=== PATIENT | female | born 1965 | race Caucasian/White ===

== ENCOUNTER → 2016-08-14 | Day surgery (SDC) | payer MEDICARE ==
[~2016-08-14] MED LIST: ACET325T9 PO; ATOR20TA58 PO; DULA1.5P SQ; FENTANYL PF 100 MCG/2 ML VIAL. IV PRN; FLUT50DI IH; FLUT9.9S NS; HYDROMORPHONE 2 MG/ML VIAL. IV PRN; INSU100I30 SQ; INSU100V13 SQ; IV RINGERS,LACTATED 1000ML 1,000 ML IV SCH; LIDOCAINE 1% 1 ML SYRINGE. ID PRN; LIDOCAINE 2% PF Vial for OR 5 ML VIAL. ONE; METF10002 PO; MORPHINE SULFATE 2 MG/ML DISP.SYRIN. IV PRN; ONDANSETRON PF 4 MG/2 ML VIAL. IV PRN; PANT40TA5 PO; PROCHLORPERAZINE 10 MG/2 ML VIAL. IV PRN; PROPOFOL 40 ML IV ONE; SUMA100T3 PO
[2016-08-14 10:26] VITALS: BP 96/71
== END ==
LOC: ENDOS 08:52
PROVIDERS: ATTEND Internal Medicine Gastroenterology
DX: K64.0 First degree hemorrhoids (principal); K52.9 Noninfective gastroenteritis and colitis, unspecified; Z80.0 Family history of malignant neoplasm of digestive organs; M19.90 Unspecified osteoarthritis, unspecified site; J45.909 Unspecified asthma, uncomplicated; F32.9 Major depressive disorder, single episode, unspecified; K21.9 Gastro-esophageal reflux disease without esophagitis; E78.00 Pure hypercholesterolemia, unspecified
CPT/HCPCS: 45378; 82947; J2704

== ENCOUNTER 2019-10-29 14:07 | Inpatient (IN) | payer MEDICARE ==
[~2019-10-29] VITALS: Ht 157.5 cm; Wt 67.5 kg
[2019-10-29] VITALS (7 sets, daily range): BP systolic 115–137; BP diastolic 68–74
[~2019-10-29 14:07] MED LIST changes: -FENTANYL PF 100 MCG/2 ML VIAL. IV PRN; -HYDROMORPHONE 2 MG/ML VIAL. IV PRN; -IV RINGERS,LACTATED 1000ML 1,000 ML IV SCH; -LIDOCAINE 1% 1 ML SYRINGE. ID PRN; -LIDOCAINE 2% PF Vial for OR 5 ML VIAL. ONE; -METF10002 PO; +METF10007 PO; -MORPHINE SULFATE 2 MG/ML DISP.SYRIN. IV PRN; -ONDANSETRON PF 4 MG/2 ML VIAL. IV PRN; -PANT40TA5 PO; +PANT40TA77 PO; -PROCHLORPERAZINE 10 MG/2 ML VIAL. IV PRN; -PROPOFOL 40 ML IV ONE
--- NOTE | 2019-10-29 14:20 | NUR ---
Pt admitted to rm 107, via gurney- ambulated to bed independently. Pt A&Ox4, 02 sat 97% on 5L nc, no visible signs of distress. Afebrile, all VSS. Admission completed. Dr Fox here to see pt- downgraded pt to med surg floor- will give report to 6SO/danitza + pt.
[2019-10-29] MEDS ORDERED: busPIRone 10 MG TABLET. PO PRN (14:45)
[2019-10-29] MEDS ORDERED: DEXTROSE 50% 25 GM / 50ML DISP.SYRIN. IV PRN (14:45)
[2019-10-29] MEDS ORDERED: fentaNYL PF VIAL 100 MCG/2 ML VIAL IVP PRN (14:45)
--- NOTE | 2019-10-29 15:05 | PDOC1 ---
History and Physical Date of Admission Date of Admission DATE: 10/29/19 TIME: 15:05 History of Present Illness History of Present Illness Ms Sanford is a 54yo F w/ PMHx DM2, COPD from childhood asthma, bilateral PE on xarelto who was admitted through the ED at [facility] on 10/25/2019 with a 1-week history of gradually increasing shortness of breath, fevers up to 103.5 degrees Fahrenheit, nausea, vomiting, some diarrhea. She is very weak. She has minimal exposure. Her does work outside the house. She is a lifelong nonsmoker. Her CT scan showed bilateral ground glass opacities and therefore a SARS-CoV-2 (COVID-19) swab was sent and returned positive. Over the course of 5 days her O2 needs gradually increased by 1L/min and she was placed in ICU at [place]. Start on experimental oral Plaquenil and Zithromax prior to the COVID-19 swab coming back positive, 10/29 will be her last day of treatment. She was called for transfer to [facility] due to increasing O2 needs to 5L NCO2 and concern for possible impending respiratory failure and need for ventilator access. She is seen in some respiratory distress in our ICU, but has O2 saturations of 96% on 5L NCO2 and glucose in 300s. Prior to discharge, she had a hemoglobin of 11.8 g/dL with a white count of 4100. Electrolytes were within normal range. Sodium 140 mEq/L, potassium 3.7 mEq per liter. Nonfasting blood sugar 295. {On 09/16/2019 she was found with bilateral PE at [facility] after a road trip to [place] and has has intermittent difficulty affording anticoagulation, was initially started on eliquis, now has transitioned to Xarelto for treatment.} Past Medical History Pulmonary: Asthma, Bronchitis, COPD, Pulmonary embolus GI: No pertinent hx Heme/Onc: No pertinent hx Hepatobiliary: No pertinent hx Psych: No pertinent hx Rheumatologic: No pertinent hx Infectious disease: No pertinent hx ENT: No pertinent hx Renal/: No pertinent hx Endocrine: Diabetes Past Surgical History Past Surgical History: Tubal Ligation Family History Family History: Coronary Artery Disease Social History Smoke: No ALCOHOL: none Drugs: None Current Medications Current Medications Current Medications Acetaminophen (Tylenol) 1,000 mg PRN Q8HRS PRN PO MILD PAIN 1-3; Start 4/5/20 at 14:45 Insulin Glargine (Lantus Syringe) 30 unit QHS SQ ; Start 10/29/19 at 21:00 Insulin Human Lispro (HumaLOG) 0-5 UNITS TIDWMEALS SQ ; Start 10/29/19 at 17:00 Dextrose (Dextrose 50%-Water Syringe) 12.5 gm PRN Q15MIN PRN IV SEE COMMENTS; Start 10/29/19 at 14:45 Lactobacillus Rhamnosus (Culturelle) 1 cap BID PO ; Start 10/29/19 at 21:00 Rivaroxaban (Xarelto) 20 mg DAILYWBKFT PO ; Start 10/30/19 at 08:00 Hydroxychloroquine Sulfate (Plaquenil) 200 mg BID PO ; Start 10/29/19 at 21:00; Stop 10/30/19 at 09:01 Buspirone HCl (Buspar) 10 mg PRN DAILY PRN PO ANXIETY; Start 10/29/19 at 14:45 Fentanyl Citrate (Fentanyl 2ml Vial) 50 mcg PRN Q2HR PRN IVP MODERATE TO SEVERE PAIN; Start 10/29/19 at 14:45 Active Scripts Active Reported Tresiba Flextouch U-100 (Insulin Degludec) 100 Unit/1 Ml Insuln.pen 100 Unit SQ Trulicity (Dulaglutide) 1.5 Mg/0.5 Ml Pen.injctr 1.5 Mg SQ Imitrex (Sumatriptan Succinate) 100 Mg Tablet 1 Tab PO PRN Q12HRS PRN Pantoprazole Sodium 40 Mg Tablet. 1 Tab PO DAILY Metformin Hcl 1,000 Mg Tablet 1 Tab PO BID Hold for 48 hours post procedure. Restart Metformin 11/07/15 evening dose and continue as prescribed after that. Flonase Allergy Relief (Fluticasone Propionate) 9.9 Ml [place].susp 2 Sprays NS BID Flovent 50MCG Diskus (Fluticasone Propionate) 50 Mcg Disk.w.dev 50 Mcg IH BID Atorvastatin Calcium 20 Mg Tablet 20 Mg PO HS Tylenol (Acetaminophen) 325 Mg Tablet 650 Mg PO PRN Q6HRS PRN Allergies Allergies: Coded Allergies: Penicillins (Verified Allergy, Intermediate, 08/14/16) ROS General: YES: Chills, Fatigue, Malaise, Appetite; No: Night Sweats, Other PSYCHOLOGICAL ROS: YES: Anxiety; No: Behavioral Disorder, Concentration difficultie, Decreased libido, Depression, Disorientation, Hallucinations, Hostility, Irritablity, Memory difficulties, Mood Swings, Obsessive thoughts, Physical abuse, Sexual abuse, Sleep disturbances, Suicidal ideation, Other Eyes: No Blurry vision, No Decreased vision, No Double vision, No Dry eyes, No Excessive tearing, No Eye Pain, No Itchy Eyes, No Loss of vision, No Photophobia, No Scotomata, No Uses contacts, No Uses glasses, No Other HEENT: No: Heacaches, Visual Changes, Hearing change, Nasal congestion, Nasal discharge, Oral lesions, Sinus pain, Sore Throat, Epistaxis, Sneezing, Snoring, Tinnitus, Vertigo, Vocal changes, Other ALLERGY AND IMMUNOLOGY: No: Hives, Insect Bite Sensitivity, Itchy/Watery Eyes, Nasal Congestion, Post Nasal Drip, Seasonal Allergies, Other Hematological and Lymphatic: YES: Blood Clots; No: Bleeding Problems, Blood Transfusions, Brusing, Night Sweats, Pallor, Swollen Lymph Nodes, Other ENDOCRINE: No: Breast Changes, Galactorrhea, Hair Pattern Changes, Hot Flashes, Malaise/lethargy, Mood Swings, Palpitations, Polydipsia/polyuria, Skin Changes, Temperature Intolerance, Unexpected Weight Changes, Other Breast: No New/Changing Breast Lumps, No Nipple changes, No Nipple discharge, No Other Respiratory: YES: Cough, Pleuritic Pain, Shortness of breath, SOB with excertion, Tachypnea, Wheezing; No: Hemoptysis, Orthopnea, Sputum Changes, Stridor, Other Cardiovascular: No Chest Pain, No Palpitations, No Orthopnea, No Paroxysmal Noc. Dyspnea, No Edema, No Lt Headedness, No Other Gastrointestinal: Yes Nausea; No Vomiting, No Abdominal Pain, No Diarrhea, No Constipation, No Melena, No Hematochezia, No Other Genitourinary: No Dysuria, No Frequency, No Incontinence, No Hematuria, No Retention, No Discharge, No Urgency, No Pain, No Flank Pain, No Other, No , No , No , No , No , No , No Musculoskeletal: No Gait Disturbance, No Joint Pain, No Joint Stiffness, No Joint Swelling, No Muscle Pain, No Muscular Weakness, No Pain In:, No Swelling In:, No Other Neurological: No Behavorial Changes, No Bowel/Bladder ControlChng, No Confusion, No Dizziness, No Gait Disturbance, No Headaches, No Impaired Coord/balance, No Memory Loss, No Numbness/Tingling, No Seizures, No Speech Problems, No Tremors, No Visual Changes, No Weakness, No Other Skin: No Dry Skin, No Eczema, No Hair Changes, No Lumps, No Mole Changes, No Mottling, No Nail Changes, No Pruritus, No Rash, No Skin Lesion Changes, No Other, No Acne Physical Exam General: Alert, Oriented X3, Cooperative, moderate distress HEENT: Atraumatic, PERRLA, EOMI, Mucous membr. moist/pink Lungs: Other (Bilateral rhonchi) Heart: S1S2, RRR, no thrills, no rubs, no gallops, no murmurs Abdomen: Normal bowel sounds, Soft, No tenderness, No hepatosplenomegaly, No masses Rectal Exam: not examined Extremities: No clubbing, No cyanosis, No edema, Normal pulses, No tenderness/swelling Skin: No rashes, No breakdown, No significant lesion Neuro: Normal gait, Normal speech, Strength at 5/5 X4 ext, Normal tone, Sensation intact, Cranial nerves 3-12 NL, Reflexes 2+ Psych/Mental Status: Mental status NL, Mood NL VTE Prophylaxis Ordered VTE Prophylaxis Devices: Yes VTE Pharmacological Prophylaxi: Yes Assessment/Plan Assessment/Plan A/P: COVID-19 positive coronavirus pneumonia - to complete experimental plaquenil and azithromycin therapy on 10/30/2019. Will consult pulmonology for ongoing hypoxia. Acute hypoxic respiratory failure - with underlying chronic asthma/COPD and active SARS-CoV-2 infection will treat supportively. Nebulizer therapy along with a Solu-Medrol was added during her stay at [facility]. Due to limited research indicating spread of disease and poor outcomes d/c Recent diagnosis of pulmonary embolism - bilateral, will cont xarelto as prescribed Chronic obstructive pulmonary disease - as above, due to chronic asthma. Will add singulair as there are no contraindications. I have discontinued nebs and IV steroids, will consult Pulm for further recommendations Type 2 diabetes mellitus - poorly controlled. Will increase to basal bolus plus insulin regimen, stop steroids for now Pleuritic type chest pain - cont supporitive care with acetaminophen, codeine Dehydration, improved. FEN - ADA diet PPX - xarelto FULL CODE Dispo - ICU. will downgrade. transfer her from ICU to COVID unit on 6S. May need ICU in the future, however she is currently stable. CC time 35 minutes COVID-19 CRITERIA: The patient was evaluated during the global COVID-19 pandemic, and that diagnosis was suspected/considered upon their initial presentation. Their evaluation, treatment and testing was consistent with current guidelines for patients who present with complaints or symptoms that may be related to COVID-19. MARK FRAZIER MD Oct 29, 2019 15:05
[2019-10-29] MEDS: guaiFENesin/CODEINE 100mg/10mg 5 ML LIQUID PO PRN (16:20)
[2019-10-29] MEDS: ACETAMINOPHEN 500 MG TABLET PO PRN (16:20)
--- NOTE | 2019-10-29 16:45 | NUR ---
Patient arrived to room 660 via wheelchair, patient alert and oriented, 5l NC, vitals stable. Call light within reach. Will continue to monitor
[2019-10-29] MEDS: INSULIN LISPRO 300 UNITS/3 ML VIAL. SQ SCH ×2 (17:26→17:27)
--- NOTE | 2019-10-29 17:59 | NUR ---
Checked patients blood sugar which came back at 350, Dr. Fox notified. I then noticed patients armband was still [facility] armband, blood sugar was not populating into our charting system. Armband removed and replaced with [facility] armband.
[2019-10-29] MEDS: INSULIN GLARGINE SYRINGE. SQ SCH (21:00)
[2019-10-29] MEDS: MONTELUKAST SODIUM 10 MG TABLET. PO SCH (21:00)
[2019-10-29] MEDS: LACTOBACILLUS RHAMNOSUS GG 1 CAPSULE. PO SCH (21:00)
[2019-10-29] MEDS: HYDROXYCHLOROQUINE (PROGRAM) 200 MG TABLET PO SCH (21:00)
[2019-10-29] MEDS ORDERED: INSULIN LISPRO 300 UNITS/3 ML VIAL. SQ ONE (21:45)
--- NOTE | 2019-10-29 21:50 | CONS ---
DATE OF CONSULTATION: PULMONARY CONSULTATION ATTENDING PHYSICIAN: Dr. Herbie Fox. REASON FOR CONSULTATION: Hypoxia, COVID-19 pneumonia and recent pulmonary embolism. HISTORY OF PRESENT ILLNESS: The patient is a 54-year-old female who has no significant tobacco history. She has history of asthma. She was recently diagnosed in August with bilateral pulmonary embolism and DVT at [facility] after a road trip to [place] and has been on Xarelto. The patient presented to [facility] on 10/24 with 1-week history of gradually increasing shortness of breath. She had fevers up to 103 at home. She has had some nausea, vomiting and some diarrhea. The patient was very weak. She had a CAT scan done at [facility], which showed ground-glass opacities and was strongly favoring COVID-19 pneumonitis. The patient's oxygen requirement had increased and was placed up to 5 liters of oxygen. As a result, she was transferred to our facility with possibility for needing ICU care. The patient has been on Plaquenil and Zithromax for the last 4 days and tomorrow will be her last day of treatment. She does not appear to be in any obvious respiratory distress while on 4 liters nasal cannula, but does appear ill. PAST MEDICAL HISTORY: Significant for history of possible asthma, but no significant tobacco history. History of pulmonary embolism and deep venous thrombosis in 08/[address] her trip to [place] and has been on Xarelto. History of diabetes. PAST SURGICAL HISTORY: Tubal ligation. ALLERGIES: PENICILLIN. FAMILY HISTORY: Coronary artery disease. SOCIAL HISTORY: No significant tobacco history or alcohol history. MEDICATIONS: All reviewed as listed in the MRAD including Xarelto. The patient is on Plaquenil, Singulair and receiving BuSpar and p.r.n. Tylenol. REVIEW OF SYSTEMS: A 10-point system obtained. Pertinent positives are discussed in my history of present illness, otherwise noncontributory. All systems that were negative were reviewed as well. PHYSICAL EXAMINATION: VITAL SIGNS: Reviewed. Blood pressure 115/68, pulse oximetry 96% on 4 liters. Her T-max at our hospital was 99.4. GENERAL: She does not appear to be in any obvious respiratory distress while on 4 liters nasal cannula. EYES: Her visual exam was performed via telemedicine. NECK: With no JVD. ABDOMEN: Obese. EXTREMITIES: With no pitting edema. LABORATORY DATA: Have been ordered and are pending. Blood sugar 340. IMPRESSION: 1. Acute hypoxic respiratory failure secondary to COVID-[address] chest with ground-glass opacities favoring a viral pneumonitis/COVID-19 pneumonia. 3. Recent history of pulmonary embolism in 08/2019 along with DVT after a road trip to [place]. The patient has been on anticoagulation with Xarelto. Initially, she was on Eliquis. She would need at least 3 months of anticoagulation and a followup imaging study. 4. Underlying obesity. 5. Underlying asthma, clinically stable. RECOMMENDATIONS: 1. Discussed with the patient and the RN regarding the plan of treatment. 2. Continue with present oxygen at 4 liters, keep saturations 94 and above. 3. Finished a 5-day course of Plaquenil. 4. Monitor fever pattern and for any worsening hypoxia. 5. Continue Xarelto. 6. We will follow labs and make necessary adjustment. 7. She will require at least 3 months of anticoagulation. She will also require followup imaging study with venous Dopplers and a lung scan prior to discontinuation in about 3 months. 8. Discussed with RN and we will follow along with you. BRADY LEÓN MD DR: JIGNESH/bobby JOB#: [id number] / [id number]
[2019-10-30 04:00] VITALS: BP 106/69
[2019-10-30 04:31] LABS: BASO % 1 % (0-3); EOS % 0 % (0-3); HEMATOCRIT 33.8 % (36.0-47.0); HEMOGLOBIN 11.4 g/dL (12.0-15.5); LYMPH # 1.3 x10^3/uL (1.0-4.8); LYMPH % 21 % (24-48); MEAN CORPUSCULAR HEMOGLOBIN 31 pg (25-35); MEAN CORPUSCULAR HGB CONC 34 g/dL (31-37); MEAN CORPUSCULAR VOLUME 92 fL (79-100); MONO # 0.8 x10^3/uL (0.0-1.1); MONO % 13 % (0-9); NEUT # 4.1 x10^3/uL (1.8-7.7); NEUT % 66 % (31-73); PLATELET COUNT 392 x10^3/uL (140-400); RED BLOOD COUNT 3.69 x10^6/uL (3.50-5.40); RED CELL DISTRIBUTION WIDTH 13.4 % (11.5-14.5); WHITE BLOOD COUNT 6.2 x10^3/uL (4.0-11.0)
[2019-10-30 04:53] LABS: CALCIUM 8.8 mg/dL (8.5-10.1); CREATININE 0.6 mg/dL (0.6-1.0); GFR 103.8; POTASSIUM 3.7 mmol/L (3.5-5.1)
--- NOTE | 2019-10-30 07:07 | NUR ---
IP: According to H&P, pt was proved COVID + while at [facility]. Pt to be in airborne/contact precautions using a face shield.
[2019-10-30 08:00] VITALS: BP 100/63
[2019-10-30] MEDS: INSULIN LISPRO 300 UNITS/3 ML VIAL. SQ SCH ×6 (08:00→18:04)
--- NOTE | 2019-10-30 08:09 | RAD ---
Single view of the chest. 10/30/2019 5:00 AM Indication: COVID follow up Comparison: None available Findings: Lordotic projection noted. No pneumothorax or effusion is seen. Patchy interstitial and alveolar infiltrates are present bilaterally. Heart size is normal. Bony thorax is grossly intact. IMPRESSION: Diffuse interstitial and patchy alveolar infiltrates. Electronically signed by: Óscar Winn MD (10/30/2019 8:06 AM) [id number]
[2019-10-30] MEDS: HYDROXYCHLOROQUINE (PROGRAM) 200 MG TABLET PO SCH (09:24)
[2019-10-30] MEDS: RIVAROXABAN 10 MG TABLET. PO SCH (09:25)
[2019-10-30] MEDS: LACTOBACILLUS RHAMNOSUS GG 1 CAPSULE. PO SCH ×2 (09:25→21:09)
--- NOTE | 2019-10-30 10:37 | NUR ---
SW following. Chart reviewed, pt is from home with . Pt tested positive for COVID-19. Pt requiring 4-5L of oxygen at this time. SW will continue to follow.
--- NOTE | 2019-10-30 11:43 | PDOC ---
PULMONARY PROGRESS NOTES Subjective no increase soa Vitals Vital Signs Date Time Temp Pulse Resp B/P (MAP) Pulse Ox O2 Delivery O2 Flow Rate FiO2 10/30/19 08:00 97.6 52 100/63 (75) 95 Nasal Cannula 5.0 97.6 10/30/19 04:00 18 Comments visual exam done no soa, no rash no leg edema General: Alert, No acute distress Labs Laboratory Tests Test 10/29/19 16:32 10/29/19 21:15 10/30/19 04:00 10/30/19 08:19 Glucose (Fingerstick) 350 mg/dL (70-99) 340 mg/dL (70-99) 119 mg/dL (70-99) White Blood Count 6.2 x10^3/uL (4.0-11.0) Red Blood Count 3.69 x10^6/uL (3.50-5.40) Hemoglobin 11.4 g/dL (12.0-15.5) Hematocrit 33.8 % (36.0-47.0) Mean Corpuscular Volume 92 fL (79-100) Mean Corpuscular Hemoglobin 31 pg (25-35) Mean Corpuscular Hemoglobin Concent 34 g/dL (31-37) Red Cell Distribution Width 13.4 % (11.5-14.5) Platelet Count 392 x10^3/uL (140-400) Neutrophils (%) (Auto) 66 % (31-73) Lymphocytes (%) (Auto) 21 % (24-48) Monocytes (%) (Auto) 13 % (0-9) Eosinophils (%) (Auto) 0 % (0-3) Basophils (%) (Auto) 1 % (0-3) Neutrophils # (Auto) 4.1 x10^3/uL (1.8-7.7) Lymphocytes # (Auto) 1.3 x10^3/uL (1.0-4.8) Monocytes # (Auto) 0.8 x10^3/uL (0.0-1.1) Eosinophils # (Auto) 0.0 x10^3/uL (0.0-0.7) Basophils # (Auto) 0.0 x10^3/uL (0.0-0.2) Sodium Level 143 mmol/L (136-145) Potassium Level 3.7 mmol/L (3.5-5.1) Chloride Level 103 mmol/L (98-107) Carbon Dioxide Level 29 mmol/L (21-32) Anion Gap 11 (6-14) Blood Urea Nitrogen 16 mg/dL (7-20) Creatinine 0.6 mg/dL (0.6-1.0) Estimated GFR (Cockcroft-Gault) 103.8 Glucose Level 173 mg/dL (70-99) Calcium Level 8.8 mg/dL (8.5-10.1) Test 10/30/19 11:36 Glucose (Fingerstick) 213 mg/dL (70-99) Laboratory Tests Test 10/29/19 16:32 10/29/19 21:15 10/30/19 04:00 10/30/19 08:19 Glucose (Fingerstick) 350 mg/dL (70-99) 340 mg/dL (70-99) 119 mg/dL (70-99) White Blood Count 6.2 x10^3/uL (4.0-11.0) Red Blood Count 3.69 x10^6/uL (3.50-5.40) Hemoglobin 11.4 g/dL (12.0-15.5) Hematocrit 33.8 % (36.0-47.0) Mean Corpuscular Volume 92 fL (79-100) Mean Corpuscular Hemoglobin 31 pg (25-35) Mean Corpuscular Hemoglobin Concent 34 g/dL (31-37) Red Cell Distribution Width 13.4 % (11.5-14.5) Platelet Count 392 x10^3/uL (140-400) Neutrophils (%) (Auto) 66 % (31-73) Lymphocytes (%) (Auto) 21 % (24-48) Monocytes (%) (Auto) 13 % (0-9) Eosinophils (%) (Auto) 0 % (0-3) Basophils (%) (Auto) 1 % (0-3) Neutrophils # (Auto) 4.1 x10^3/uL (1.8-7.7) Lymphocytes # (Auto) 1.3 x10^3/uL (1.0-4.8) Monocytes # (Auto) 0.8 x10^3/uL (0.0-1.1) Eosinophils # (Auto) 0.0 x10^3/uL (0.0-0.7) Basophils # (Auto) 0.0 x10^3/uL (0.0-0.2) Sodium Level 143 mmol/L (136-145) Potassium Level 3.7 mmol/L (3.5-5.1) Chloride Level 103 mmol/L (98-107) Carbon Dioxide Level 29 mmol/L (21-32) Anion Gap 11 (6-14) Blood Urea Nitrogen 16 mg/dL (7-20) Creatinine 0.6 mg/dL (0.6-1.0) Estimated GFR (Cockcroft-Gault) 103.8 Glucose Level 173 mg/dL (70-99) Calcium Level 8.8 mg/dL (8.5-10.1) Test 10/30/19 11:36 Glucose (Fingerstick) 213 mg/dL (70-99) Medications Active Scripts Medications Dose Route/Sig Max Daily Dose Days Date Category Dose Instructions Tresiba Flextouch U-100 (Insulin Degludec) 100 Unit/1 Ml Insuln.pen 100 Unit SQ 08/12/16 Reported Trulicity (Dulaglutide) 1.5 Mg/0.5 Ml Pen.injctr 1.5 Mg SQ 08/12/16 Reported Imitrex (Sumatriptan Succinate) 100 Mg Tablet 1 Tab PO PRN Q12HRS PRN 11/05/15 Reported Pantoprazole Sodium 40 Mg Tablet.dr 1 Tab PO DAILY 11/05/15 Reported Metformin Hcl 1,000 Mg Tablet 1 Tab PO BID 11/05/15 Reported Hold for 48 hours post procedure. Restart Metformin 11/07/15 evening dose and continue as prescribed after that. Flonase Allergy Relief (Fluticasone Propionate) 9.9 Ml [place].susp 2 Sprays NS BID 11/05/15 Reported Flovent 50MCG Diskus (Fluticasone Propionate) 50 Mcg Disk.w.dev 50 Mcg IH BID 11/05/15 Reported Atorvastatin Calcium 20 Mg Tablet 20 Mg PO HS 11/05/15 Reported Tylenol (Acetaminophen) 325 Mg Tablet 650 Mg PO PRN Q6HRS PRN 11/05/15 Reported Impression . 1. Acute hypoxic respiratory failure secondary to COVID-[address] chest with ground-glass opacities favoring a viral pneumonitis/COVID-19 pneumonia. 3. Recent history of pulmonary embolism in 08/2019 along with DVT after a road trip to [place]. The patient has been on anticoagulation with Xarelto. Initially, she was on Eliquis. She would need at least 3 months of anticoagulation and a followup imaging study. 4. Underlying obesity. 5. Underlying asthma, clinically stable. Plan . 1. Discussed with the patient and the RN regarding the plan of treatment. 2. Continue with present oxygen at 4 liters, keep saturations 94 and above. 3. Finished a 5-day course of Plaquenil. 4. Monitor fever pattern and for any worsening hypoxia. 5. Continue Xarelto. 6. We will follow labs and make necessary adjustment. 7. She will require at least 3 months of anticoagulation. She will also require followup imaging study with venous Dopplers and a lung scan prior to discontinuation in about 3 months. 8. Discussed with RN and we will follow along with you. BRADY LEÓN MD Oct 30, 2019 11:43
[2019-10-30 12:00] VITALS: BP 103/59
--- NOTE | 2019-10-30 12:11 | PDOC ---
[employer] [facility] PROGRESS NOTE Chief Complaint Chief Complaint Acute hypoxic respiratory failure secondary to COVID-[address] chest with ground-glass opacities favoring a viral pneumonitis/COVID-19 pneumonia. Recent history of pulmonary embolism in 08/2019 along with DVT after a road trip to [place]. The patient has been on anticoagulation with Xarelto. Initially, she was on Eliquis. She would need at least 3 months of anticoagulation and a followup imaging study. Underlying obesity. Underlying asthma, clinically stable. History of Present Illness History of Present Illness [id number] Patient seen and examined Discussed with RN Chart reviewed She is very ill Vitals/I&O Vitals/I&O: Vital Signs Date Time Temp Pulse Resp B/P (MAP) Pulse Ox O2 Delivery O2 Flow Rate FiO2 10/30/19 08:00 97.6 52 100/63 (75) 95 Nasal Cannula 5.0 97.6 10/30/19 04:00 18 I & O0 10/29/19 10/29/19 10/30/19 15:00 23:00 07:00 Intake Total 120 ml Balance 120 ml Physical Exam General: Alert, Oriented X3, Cooperative, moderate distress Heart: Regular rate, Normal S1 Lungs: Crackles, Other (wheezing) Abdomen: Normal bowel sounds, Soft, No tenderness, No hepatosplenomegaly, No masses Extremities: No clubbing, No cyanosis, No edema, Normal pulses, No tenderness/swelling Skin: No rashes, No breakdown, No significant lesion Labs Labs: Laboratory Tests Test 10/29/19 16:32 10/29/19 21:15 10/30/19 04:00 10/30/19 08:19 Glucose (Fingerstick) 350 mg/dL (70-99) 340 mg/dL (70-99) 119 mg/dL (70-99) White Blood Count 6.2 x10^3/uL (4.0-11.0) Red Blood Count 3.69 x10^6/uL (3.50-5.40) Hemoglobin 11.4 g/dL (12.0-15.5) Hematocrit 33.8 % (36.0-47.0) Mean Corpuscular Volume 92 fL (79-100) Mean Corpuscular Hemoglobin 31 pg (25-35) Mean Corpuscular Hemoglobin Concent 34 g/dL (31-37) Red Cell Distribution Width 13.4 % (11.5-14.5) Platelet Count 392 x10^3/uL (140-400) Neutrophils (%) (Auto) 66 % (31-73) Lymphocytes (%) (Auto) 21 % (24-48) Monocytes (%) (Auto) 13 % (0-9) Eosinophils (%) (Auto) 0 % (0-3) Basophils (%) (Auto) 1 % (0-3) Neutrophils # (Auto) 4.1 x10^3/uL (1.8-7.7) Lymphocytes # (Auto) 1.3 x10^3/uL (1.0-4.8) Monocytes # (Auto) 0.8 x10^3/uL (0.0-1.1) Eosinophils # (Auto) 0.0 x10^3/uL (0.0-0.7) Basophils # (Auto) 0.0 x10^3/uL (0.0-0.2) Sodium Level 143 mmol/L (136-145) Potassium Level 3.7 mmol/L (3.5-5.1) Chloride Level 103 mmol/L (98-107) Carbon Dioxide Level 29 mmol/L (21-32) Anion Gap 11 (6-14) Blood Urea Nitrogen 16 mg/dL (7-20) Creatinine 0.6 mg/dL (0.6-1.0) Estimated GFR (Cockcroft-Gault) 103.8 Glucose Level 173 mg/dL (70-99) Calcium Level 8.8 mg/dL (8.5-10.1) Test 10/30/19 11:36 Glucose (Fingerstick) 213 mg/dL (70-99) Assessment and Plan Assessmemt and Plan 1. Acute hypoxic respiratory failure secondary to COVID-[address] chest with ground-glass opacities favoring a viral pneumonitis/COVID-19 pneumonia. 3. Recent history of pulmonary embolism in 08/2019 along with DVT after a road trip to [place]. The patient has been on anticoagulation with Xarelto. Initially, she was on Eliquis. She would need at least 3 months of anticoagulation and a followup imaging study. 4. Underlying obesity. 5. Underlying asthma Plan IV antibiotics Duo nebs O2 Home meds DVT prophylaxis Full code Appreciate subspecialist input Continue with present oxygen at 4 liters, keep saturations 94 and above. Finished a 5-day course of Plaquenil. Monitor fever pattern and for any worsening hypoxia. 5Continue Xarelto. She will require at least 3 months of anticoagulation. She will also require followup imaging study with venous Dopplers and a lung scan prior to discontinuation in about 3 months. Prognosis guarded Total time 31 minutes Comment Review of Relevant I have reviewed the following items [place] (where applicable) has been applied. Medications: Current Medications Medications (Trade) Dose Ordered Sig/Joe Route PRN Reason Start Time Stop Time Status Last Admin Dose Admin Acetaminophen (Tylenol) 1,000 mg PRN Q8HRS PRN PO MILD PAIN 1-3 10/29/19 14:45 10/29/19 16:20 Insulin Glargine (Lantus Syringe) 30 unit QHS SQ 10/29/19 21:00 10/29/19 21:00 Insulin Human Lispro (HumaLOG) 0-5 UNITS TIDWMEALS SQ 10/29/19 17:00 10/29/19 17:26 Lactobacillus Rhamnosus (Culturelle) 1 cap BID PO 10/29/19 21:00 10/30/19 09:25 Rivaroxaban (Xarelto) 20 mg DAILYWBKFT PO 10/30/19 08:00 10/30/19 09:25 Hydroxychloroquine Sulfate (Plaquenil (Med Program)) 200 mg BID PO 10/29/19 21:00 10/30/19 09:01 DC 10/30/19 09:24 Fentanyl Citrate (Fentanyl 2ml Vial) 50 mcg PRN Q2HR PRN IVP MODERATE TO SEVERE PAIN 10/29/19 14:45 10/29/19 21:01 Guaifenesin/ Codeine Phosphate (Robitussin Ac) 5 ml PRN Q6HRS PRN PO COUGH 10/29/19 15:30 10/29/19 16:20 Insulin Human Lispro (HumaLOG) 3 units TIDWMEALS SQ 10/29/19 17:00 10/29/19 17:27 Montelukast Sodium (Singulair) 10 mg QHS PO 10/29/19 21:00 10/29/19 21:00 Insulin Human Lispro (HumaLOG) 9 units 1X ONCE SQ 10/29/19 21:45 10/29/19 21:46 DC 10/29/19 21:47 KARLI PITTMAN III DO Oct 30, 2019 12:11
[2019-10-30] MEDS: ACETAMINOPHEN 500 MG TABLET PO PRN ×2 (14:02→21:09)
[2019-10-30 16:00] VITALS: BP 102/57
[2019-10-30 19:00] VITALS: BP 106/64
[2019-10-30] MEDS: MONTELUKAST SODIUM 10 MG TABLET. PO SCH (21:09)
[2019-10-30] MEDS: INSULIN GLARGINE SYRINGE. SQ SCH (21:21)
[2019-10-30 22:20] VITALS: BP 109/66
[2019-10-31 02:50] VITALS: BP 123/74
[2019-10-31 07:00] VITALS: BP 91/55
[2019-10-31] MEDS: INSULIN LISPRO 300 UNITS/3 ML VIAL. SQ SCH ×6 (07:48→17:13)
[2019-10-31] MEDS: LACTOBACILLUS RHAMNOSUS GG 1 CAPSULE. PO SCH ×2 (07:57→21:02)
[2019-10-31] MEDS: RIVAROXABAN 10 MG TABLET. PO SCH (07:57)
--- NOTE | 2019-10-31 10:10 | NUR ---
SW following. Discussed with RN, pt from home with , currently requiring 5L oxygen, which per RN, pt does not use at home. COVID+. SW will continue to follow.
[2019-10-31 10:39] VITALS: BP 100/60
[2019-10-31] MEDS: ACETAMINOPHEN 500 MG TABLET PO PRN ×2 (11:58→21:32)
--- NOTE | 2019-10-31 12:34 | PDOC ---
[employer] [facility] PROGRESS NOTE Chief Complaint Chief Complaint COVID-19 CRITERIA: The patient was evaluated during the global COVID-19 pandemic, and that diagnosis was suspected/considered upon their initial presen tation. Their evaluation, treatment and testing was consistent with current guidelines for patients who present with complaints or symptoms that may be related to COVID-19. Acute hypoxic respiratory failure secondary to COVID-[address] chest with ground-glass opacities favoring a viral pneumonitis/COVID-19 pneumonia. Recent history of pulmonary embolism in 08/2019 along with DVT after a road trip to [place]. The patient has been on anticoagulation with Xarelto. Initially, she was on Eliquis. She would need at least 3 months of anticoagulation and a followup imaging study. Underlying obesity. Underlying asthma, clinically stable. History of Present Illness History of Present Illness 10-31-2019 Patient seen and examined on the Covid-19 unit She remains in respiratory isolation Very ill Chart reviewed Discussed with RN [id number] Patient seen and examined Discussed with RN Chart reviewed She is very ill Vitals/I&O Vitals/I&O: Vital Signs Date Time Temp Pulse Resp B/P (MAP) Pulse Ox O2 Delivery O2 Flow Rate FiO2 10/31/19 10:39 97.5 57 18 100/60 (73) 90 Nasal Cannula 5.0 97.5 I & O 10/30/19 10/30/19 10/31/19 15:00 23:00 07:00 Intake Total 400 ml 120 ml 180 ml Balance 400 ml 120 ml 180 ml Physical Exam General: Cooperative, moderate distress Heart: Regular rate, Normal S1 Lungs: Crackles, Other (wheezing) Abdomen: Normal bowel sounds, Soft, No tenderness, No hepatosplenomegaly, No masses Extremities: No clubbing, No cyanosis, No edema, Normal pulses, No tenderness/swelling Skin: No rashes, No breakdown, No significant lesion Labs Labs: Laboratory Tests Test 10/30/19 16:58 10/30/19 21:12 10/30/19 21:14 10/31/19 02:53 Glucose (Fingerstick) 220 mg/dL (70-99) 125 mg/dL (70-99) 137 mg/dL (70-99) 95 mg/dL (70-99) Test 10/31/19 07:40 10/31/19 11:39 Glucose (Fingerstick) 86 mg/dL (70-99) 91 mg/dL (70-99) Assessment and Plan Assessmemt and Plan 1. Acute hypoxic respiratory failure secondary to COVID-[address] chest with ground-glass opacities favoring a viral pneumonitis/COVID-19 pneumonia. 3. Recent history of pulmonary embolism in 08/2019 along with DVT after a road trip to [place]. The patient has been on anticoagulation with Xarelto. Initially, she was on Eliquis. She would need at least 3 months of anticoagulation and a followup imaging study. 4. Underlying obesity. 5. Underlying asthma Plan IV antibiotics Duo nebs O2 Home meds DVT prophylaxis Full code Appreciate subspecialist input Continue with present oxygen at 4 liters, keep saturations 94 and above. Finished a 5-day course of Plaquenil. Monitor fever pattern and for any worsening hypoxia. 5Continue Xarelto. She will require at least 3 months of anticoagulation. She will also require followup imaging study with venous Dopplers and a lung scan prior to discontinuation in about 3 months. Prognosis guarded COVID-19 CRITERIA: The patient was evaluated during the global COVID-19 pandemic, and that diagnosis was suspected/considered upon their initial presentation. Their evaluation, treatment and testing was consistent with current guidelines for patients who present with complaints or symptoms that may be related to COVID-19. Total time 33 minutes Comment Review of Relevant I have reviewed the following items [place] (where applicable) has been applied. KARLI PITTMAN III DO Oct 31, 2019 12:34
[2019-10-31 14:50] VITALS: BP 90/59
--- NOTE | 2019-10-31 17:13 | PDOC ---
PULMONARY PROGRESS NOTES Subjective Patient not more short of air, on 5 L Vitals Vital Signs Date Time Temp Pulse Resp B/P (MAP) Pulse Ox O2 Delivery O2 Flow Rate FiO2 10/31/19 14:50 97.9 61 18 90/59 (69) 88 Nasal Cannula 5.0 97.9 General: Alert, No acute distress Lungs: Crackles, Other (wheezing) Cardiovascular: S1, S2 Abdomen: Soft Neuro Exam: Alert Extremities: No Edema Skin: Warm Labs Laboratory Tests Test 10/29/19 21:15 10/30/19 04:00 10/30/19 08:19 10/30/19 11:36 Glucose (Fingerstick) 340 mg/dL (70-99) 119 mg/dL (70-99) 213 mg/dL (70-99) White Blood Count 6.2 x10^3/uL (4.0-11.0) Red Blood Count 3.69 x10^6/uL (3.50-5.40) Hemoglobin 11.4 g/dL (12.0-15.5) Hematocrit 33.8 % (36.0-47.0) Mean Corpuscular Volume 92 fL (79-100) Mean Corpuscular Hemoglobin 31 pg (25-35) Mean Corpuscular Hemoglobin Concent 34 g/dL (31-37) Red Cell Distribution Width 13.4 % (11.5-14.5) Platelet Count 392 x10^3/uL (140-400) Neutrophils (%) (Auto) 66 % (31-73) Lymphocytes (%) (Auto) 21 % (24-48) Monocytes (%) (Auto) 13 % (0-9) Eosinophils (%) (Auto) 0 % (0-3) Basophils (%) (Auto) 1 % (0-3) Neutrophils # (Auto) 4.1 x10^3/uL (1.8-7.7) Lymphocytes # (Auto) 1.3 x10^3/uL (1.0-4.8) Monocytes # (Auto) 0.8 x10^3/uL (0.0-1.1) Eosinophils # (Auto) 0.0 x10^3/uL (0.0-0.7) Basophils # (Auto) 0.0 x10^3/uL (0.0-0.2) Sodium Level 143 mmol/L (136-145) Potassium Level 3.7 mmol/L (3.5-5.1) Chloride Level 103 mmol/L (98-107) Carbon Dioxide Level 29 mmol/L (21-32) Anion Gap 11 (6-14) Blood Urea Nitrogen 16 mg/dL (7-20) Creatinine 0.6 mg/dL (0.6-1.0) Estimated GFR (Cockcroft-Gault) 103.8 Glucose Level 173 mg/dL (70-99) Calcium Level 8.8 mg/dL (8.5-10.1) Test 10/30/19 16:58 10/30/19 21:12 10/30/19 21:14 10/31/19 02:53 Glucose (Fingerstick) 220 mg/dL (70-99) 125 mg/dL (70-99) 137 mg/dL (70-99) 95 mg/dL (70-99) Test 10/31/19 07:40 10/31/19 11:39 10/31/19 16:39 Glucose (Fingerstick) 86 mg/dL (70-99) 91 mg/dL (70-99) 134 mg/dL (70-99) Laboratory Tests Test 10/30/19 21:12 10/30/19 21:14 10/31/19 02:53 10/31/19 07:40 Glucose (Fingerstick) 125 mg/dL (70-99) 137 mg/dL (70-99) 95 mg/dL (70-99) 86 mg/dL (70-99) Test 10/31/19 11:39 10/31/19 16:39 Glucose (Fingerstick) 91 mg/dL (70-99) 134 mg/dL (70-99) Medications Active Scripts Medications Dose Route/Sig Max Daily Dose Days Date Category Dose Instructions Tresiba Flextouch U-100 (Insulin Degludec) 100 Unit/1 Ml Insuln.pen 100 Unit SQ 08/12/16 Reported Trulicity (Dulaglutide) 1.5 Mg/0.5 Ml Pen.injctr 1.5 Mg SQ 08/12/16 Reported Imitrex (Sumatriptan Succinate) 100 Mg Tablet 1 Tab PO PRN Q12HRS PRN 11/05/15 Reported Pantoprazole Sodium 40 Mg Tablet.dr 1 Tab PO DAILY 11/05/15 Reported Metformin Hcl 1,000 Mg Tablet 1 Tab PO BID 11/05/15 Reported Hold for 48 hours post procedure. Restart Metformin 11/07/15 evening dose and continue as prescribed after that. Flonase Allergy Relief (Fluticasone Propionate) 9.9 Ml [place].susp 2 Sprays NS BID 11/05/15 Reported Flovent 50MCG Diskus (Fluticasone Propionate) 50 Mcg Disk.w.dev 50 Mcg IH BID 11/05/15 Reported Atorvastatin Calcium 20 Mg Tablet 20 Mg PO HS 11/05/15 Reported Tylenol (Acetaminophen) 325 Mg Tablet 650 Mg PO PRN Q6HRS PRN 11/05/15 Reported Impression . 1. Acute hypoxic respiratory failure secondary to COVID-[address] chest with ground-glass opacities favoring a viral pneumonitis/COVID-19 pneumonia. 3. Recent history of pulmonary embolism in 08/2019 along with DVT after a road trip to [place]. The patient has been on anticoagulation with Xarelto. Initially, she was on Eliquis. She would need at least 3 months of anticoagulation and a followup imaging study. 4. Underlying obesity. 5. Underlying asthma, clinically stable. Plan . Patient doing better, possible discharge tomorrow on October 31, will need 6-minute walk 1. Discussed with the patient and the RN regarding the plan of treatment. 2. Continue with present oxygen at 4 liters, keep saturations 94 and above. 3. Finished a 5-day course of Plaquenil. 4. Monitor fever pattern and for any worsening hypoxia. 5. Continue Xarelto. 6. We will follow labs and make necessary adjustment. 7. She will require at least 3 months of anticoagulation. She will also require followup imaging study with venous Dopplers and a lung scan prior to discontinuation in about 3 months. BUCK DIAZ MD Oct 31, 2019 17:13
[2019-10-31 19:00] VITALS: BP 99/63
[2019-10-31] MEDS: MONTELUKAST SODIUM 10 MG TABLET. PO SCH ×2 (21:02→21:12)
[2019-10-31] MEDS: INSULIN GLARGINE SYRINGE. SQ SCH (22:32)
[2019-10-31 23:00] VITALS: BP 106/65
[2019-11-01 03:00] VITALS: BP 109/67
[2019-11-01 07:00] VITALS: BP 106/60
[2019-11-01] MEDS: INSULIN LISPRO 300 UNITS/3 ML VIAL. SQ SCH ×6 (08:00→16:31)
[2019-11-01] MEDS: RIVAROXABAN 10 MG TABLET. PO SCH (08:57)
[2019-11-01] MEDS: LACTOBACILLUS RHAMNOSUS GG 1 CAPSULE. PO SCH ×2 (08:57→21:06)
[2019-11-01] MEDS: ACETAMINOPHEN 500 MG TABLET PO PRN ×2 (08:58→21:07)
[2019-11-01 11:00] VITALS: BP 97/60
--- NOTE | 2019-11-01 11:04 | PDOC ---
PULMONARY PROGRESS NOTES Subjective Patient not more short of air, on 5 L Vitals Vital Signs Date Time Temp Pulse Resp B/P (MAP) Pulse Ox O2 Delivery O2 Flow Rate FiO2 11/01/19 08:00 Nasal Cannula 5.0 11/01/19 07:00 97.4 59 19 106/60 (75) 93 97.4 General: Alert, No acute distress Lungs: Crackles, Other (wheezing) Cardiovascular: S1, S2 Abdomen: Soft Neuro Exam: Alert Extremities: No Edema Skin: Warm Labs Laboratory Tests Test 10/30/19 11:36 10/30/19 16:58 10/30/19 21:12 10/30/19 21:14 Glucose (Fingerstick) 213 mg/dL (70-99) 220 mg/dL (70-99) 125 mg/dL (70-99) 137 mg/dL (70-99) Test 10/31/19 02:53 10/31/19 07:40 10/31/19 11:39 10/31/19 16:39 Glucose (Fingerstick) 95 mg/dL (70-99) 86 mg/dL (70-99) 91 mg/dL (70-99) 134 mg/dL (70-99) Test 11/01/19 07:39 Glucose (Fingerstick) 103 mg/dL (70-99) Laboratory Tests Test 10/31/19 11:39 10/31/19 16:39 11/01/19 07:39 Glucose (Fingerstick) 91 mg/dL (70-99) 134 mg/dL (70-99) 103 mg/dL (70-99) Medications Active Scripts Medications Dose Route/Sig Max Daily Dose Days Date Category Dose Instructions Tresiba Flextouch U-100 (Insulin Degludec) 100 Unit/1 Ml Insuln.pen 100 Unit SQ 08/12/16 Reported Trulicity (Dulaglutide) 1.5 Mg/0.5 Ml Pen.injctr 1.5 Mg SQ 08/12/16 Reported Imitrex (Sumatriptan Succinate) 100 Mg Tablet 1 Tab PO PRN Q12HRS PRN 11/05/15 Reported Pantoprazole Sodium 40 Mg Tablet.dr 1 Tab PO DAILY 11/05/15 Reported Metformin Hcl 1,000 Mg Tablet 1 Tab PO BID 11/05/15 Reported Hold for 48 hours post procedure. Restart Metformin 11/07/15 evening dose and continue as prescribed after that. Flonase Allergy Relief (Fluticasone Propionate) 9.9 Ml [place].susp 2 Sprays NS BID 11/05/15 Reported Flovent 50MCG Diskus (Fluticasone Propionate) 50 Mcg Disk.w.dev 50 Mcg IH BID 11/05/15 Reported Atorvastatin Calcium 20 Mg Tablet 20 Mg PO HS 11/05/15 Reported Tylenol (Acetaminophen) 325 Mg Tablet 650 Mg PO PRN Q6HRS PRN 11/05/15 Reported Impression . 1. Acute hypoxic respiratory failure secondary to COVID-[address] chest with ground-glass opacities favoring a viral pneumonitis/COVID-19 pneumonia. 3. Recent history of pulmonary embolism in 08/2019 along with DVT after a road trip to [place]. The patient has been on anticoagulation with Xarelto. Initially, she was on Eliquis. She would need at least 3 months of anticoagulation and a followup imaging study. 4. Underlying obesity. 5. Underlying asthma, clinically stable. Plan . Patient improving, possible discharge in the a.m. 1. Discussed with the patient and the RN regarding the plan of treatment. 2. Continue with present oxygen at 4 liters, keep saturations 94 and above. 3. Finished a 5-day course of Plaquenil. 4. Monitor fever pattern and for any worsening hypoxia. 5. Continue Xarelto. 6. We will follow labs and make necessary adjustment. 7. She will require at least 3 months of anticoagulation. She will also require followup imaging study with venous Dopplers and a lung scan prior to discontinuation in about 3 months. BUCK DIAZ MD Nov 01, 2019 11:04
--- NOTE | 2019-11-01 11:47 | PDOC ---
[facility] [facility] PROGRESS NOTE Chief Complaint Chief Complaint COVID-19 CRITERIA: The patient was evaluated during the global COVID-19 pandemic, and that diagnosis was suspected/considered upon their initial presen tation. Their evaluation, treatment and testing was consistent with current guidelines for patients who present with complaints or symptoms that may be related to COVID-19. Acute hypoxic respiratory failure secondary to COVID-[address] chest with ground-glass opacities favoring a viral pneumonitis/COVID-19 pneumonia. Recent history of pulmonary embolism in 08/2019 along with DVT after a road trip to [place]. The patient has been on anticoagulation with Xarelto. Initially, she was on Eliquis. She would need at least 3 months of anticoagulation and a followup imaging study. Underlying obesity. Underlying asthma, clinically stable. History of Present Illness History of Present Illness 11-01-2019 Patient seen and examined on the Covid-19 unit She remains in respiratory isolation Discussed with RN Chart reviewed Patient is somnolent 10-31-2019 Patient seen and examined on the Covid-19 unit She remains in respiratory isolation Very ill Chart reviewed Discussed with RN [id number] Patient seen and examined Discussed with RN Chart reviewed She is very ill Vitals/I&O Vitals/I&O: Vital Signs Date Time Temp Pulse Resp B/P (MAP) Pulse Ox O2 Delivery O2 Flow Rate FiO2 11/01/19 08:00 Nasal Cannula 5.0 11/01/19 07:00 97.4 59 19 106/60 (75) 93 97.4 I & O 10/31/19 10/31/19 11/01/19 15:00 23:00 07:00 Intake Total 500 ml 480 ml Balance 500 ml 480 ml Physical Exam General: moderate distress Heart: Regular rate, Normal S1 Lungs: Crackles, Other (wheezing) Abdomen: Normal bowel sounds, Soft, No tenderness, No hepatosplenomegaly, No masses Extremities: No clubbing, No cyanosis, No edema, Normal pulses, No tenderness/swelling Skin: No rashes, No breakdown, No significant lesion Labs Labs: Laboratory Tests Test 10/31/19 16:39 11/01/19 07:39 11/01/19 11:30 Glucose (Fingerstick) 134 mg/dL (70-99) 103 mg/dL (70-99) 131 mg/dL (70-99) Assessment and Plan Assessmemt and Plan 1. Acute hypoxic respiratory failure secondary to COVID-[address] chest with ground-glass opacities favoring a viral pneumonitis/COVID-19 pneumonia. 3. Recent history of pulmonary embolism in 08/2019 along with DVT after a road trip to [place]. The patient has been on anticoagulation with Xarelto. Initially, she was on Eliquis. She would need at least 3 months of anticoagulation and a followup imaging study. 4. Underlying obesity. 5. Underlying asthma Plan IV antibiotics Duo nebs O2 Home meds DVT prophylaxis Full code Appreciate subspecialist input Continue with present oxygen at 4 liters, keep saturations 94 and above. Finished a 5-day course of Plaquenil. Monitor fever pattern and for any worsening hypoxia. 5Continue Xarelto. She will require at least 3 months of anticoagulation. She will also require followup imaging study with venous Dopplers and a lung scan prior to discontinuation in about 3 months. Prognosis guarded COVID-19 CRITERIA: The patient was evaluated during the global COVID-19 pandemic, and that diagnosis was suspected/considered upon their initial presentation. Their evaluation, treatment and testing was consistent with current guidelines for patients who present with complaints or symptoms that may be related to COVID-19. Total time 32 minutes Comment Review of Relevant I have reviewed the following items [place] (where applicable) has been applied. KARLI PITTMAN III DO Nov 01, 2019 11:47
--- NOTE | 2019-11-01 12:36 | NUR ---
This RN paged Dr. Holloway twice and attempted to call him once in regards to pt's complaints of heartburn. Unable to reach, will continue trying to contact him.
[2019-11-01] MEDS ORDERED: MAG HYDROX/ALUMINUM HYD/SIMETH 30 ML ORAL.SUSP PO PRN (13:00)
[2019-11-01 14:56] VITALS: BP 98/65
--- NOTE | 2019-11-01 16:35 | NUR ---
SS following up with discharge planning. SS reviewed pt chart and discussed with pt RN. Pt is from home with spouse and currently requiring oxygen. Pt is COVID19 Positive. SS will continue to follow for discharge planning.
[2019-11-01 19:00] VITALS: BP 98/64
[2019-11-01] MEDS: INSULIN GLARGINE SYRINGE. SQ SCH (21:07)
[2019-11-01] MEDS: ONDANSETRON PF 4 MG/2 ML VIAL. IVP PRN (21:37)
[2019-11-01 23:00] VITALS: BP 116/66
[2019-11-02 03:00] VITALS: BP 96/59
--- NOTE | 2019-11-02 06:22 | NUR ---
Pt. has not felt well throughout shift. Complaining of nausea and did have some vomiting early on in the shift. Zofran ordered and given. Pt's O2 sats anywhere between 85-95% on 5L/NC while sleeping. States she thinks the nausea is caused by oxygen. Will continue to monitor.
[2019-11-02 07:00] VITALS: BP 90/58
[2019-11-02] MEDS: INSULIN LISPRO 300 UNITS/3 ML VIAL. SQ SCH ×4 (08:00→13:01)
[2019-11-02] MEDS: RIVAROXABAN 10 MG TABLET. PO SCH (08:46)
[2019-11-02] MEDS: ONDANSETRON PF 4 MG/2 ML VIAL. IVP PRN (08:46)
[2019-11-02] MEDS: LACTOBACILLUS RHAMNOSUS GG 1 CAPSULE. PO SCH (08:46)
[2019-11-02] MEDS: ACETAMINOPHEN 500 MG TABLET PO PRN ×2 (08:46→15:36)
[2019-11-02] MEDS: guaiFENesin/CODEINE 100mg/10mg 5 ML LIQUID PO PRN (08:51)
--- NOTE | 2019-11-02 10:08 | PDOC ---
PULMONARY PROGRESS NOTES Subjective Patient not more short of air, ready to be discharged Vitals Vital Signs Date Time Temp Pulse Resp B/P (MAP) Pulse Ox O2 Delivery O2 Flow Rate FiO2 11/02/19 07:00 98.1 66 16 90/58 (69) 92 Room Air 98.1 11/02/19 03:00 93.0 General: Alert, No acute distress Lungs: Crackles, Other (wheezing) Cardiovascular: S1, S2 Abdomen: Soft Neuro Exam: Alert Extremities: No Edema Skin: Warm Labs Laboratory Tests Test 10/31/19 11:39 10/31/19 16:39 11/01/19 07:39 11/01/19 11:30 Glucose (Fingerstick) 91 mg/dL (70-99) 134 mg/dL (70-99) 103 mg/dL (70-99) 131 mg/dL (70-99) Test 11/01/19 16:13 11/01/19 21:15 11/02/19 08:03 Glucose (Fingerstick) 213 mg/dL (70-99) 259 mg/dL (70-99) 140 mg/dL (70-99) Laboratory Tests Test 11/01/19 11:30 11/01/19 16:13 11/01/19 21:15 11/02/19 08:03 Glucose (Fingerstick) 131 mg/dL (70-99) 213 mg/dL (70-99) 259 mg/dL (70-99) 140 mg/dL (70-99) Medications Active Scripts Medications Dose Route/Sig Max Daily Dose Days Date Category Dose Instructions Tresiba Flextouch U-100 (Insulin Degludec) 100 Unit/1 Ml Insuln.pen 100 Unit SQ 08/12/16 Reported Trulicity (Dulaglutide) 1.5 Mg/0.5 Ml Pen.injctr 1.5 Mg SQ 08/12/16 Reported Imitrex (Sumatriptan Succinate) 100 Mg Tablet 1 Tab PO PRN Q12HRS PRN 11/05/15 Reported Pantoprazole Sodium 40 Mg Tablet.dr 1 Tab PO DAILY 11/05/15 Reported Metformin Hcl 1,000 Mg Tablet 1 Tab PO BID 11/05/15 Reported Hold for 48 hours post procedure. Restart Metformin 11/07/15 evening dose and continue as prescribed after that. Flonase Allergy Relief (Fluticasone Propionate) 9.9 Ml [place].susp 2 Sprays NS BID 11/05/15 Reported Flovent 50MCG Diskus (Fluticasone Propionate) 50 Mcg Disk.w.dev 50 Mcg IH BID 11/05/15 Reported Atorvastatin Calcium 20 Mg Tablet 20 Mg PO HS 11/05/15 Reported Tylenol (Acetaminophen) 325 Mg Tablet 650 Mg PO PRN Q6HRS PRN 11/05/15 Reported Impression . 1. Acute hypoxic respiratory failure secondary to COVID-[address] chest with ground-glass opacities favoring a viral pneumonitis/COVID-19 pneumonia. 3. Recent history of pulmonary embolism in 08/2019 along with DVT after a road trip to [place]. The patient has been on anticoagulation with Xarelto. Initially, she was on Eliquis. She would need at least 3 months of anticoagulation and a followup imaging study. 4. Underlying obesity. 5. Underlying asthma, clinically stable. Plan . Spoke with Dr. Holloway, discharge today, 6-minute walk, follow-up in my office as needed Patient completed a course of Plaquenil, Continue anticoagulation for 3 months BUCK DIAZ MD Nov 02, 2019 10:08
--- NOTE | 2019-11-02 10:31 | NUR ---
The BS on this patient taken at 1000 is inaccurate. Wrong barcode was scanned. RN aware.
--- NOTE | 2019-11-02 10:55 | NUR ---
ALINE following. Discussed with RN, pt discharging home today. Pt will require oxygen. ALINE spoke with pt's , Suleman ([phone]) he will be at home so the oxygen company can deliver the oxygen before pt gets home. Suleman reported he has been in a 14 day quarantine since 10/24 and has had no signs or symptoms of COVID-19. Suleman is agreeable to [facility] for oxygen. Suleman reported their friend will collect pt from the hospital around [phone] as he finishes work at 1530. ALINE to fax referral to [facility], awaiting oxygen script. Message left for RN. Addendum: 11/02/19 at 1239 by YOANA MIRELES ALINE faxed oxygen referral to [facility]. Awaiting okay to provide tank to pt. [facility] will arrange oxygen at home prior to patient arriving home this afternoon. RN notified. 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 Pt's gave verbal permission to sign pt choice of vendor form. No further SW needs.
[2019-11-02 11:00] VITALS: BP 85/47
[2019-11-02] MEDS ORDERED: MONT10TA49 PO (11:07)
[2019-11-02] MEDS ORDERED: RIVA10TA PO (11:07)
--- NOTE | 2019-11-02 11:08 | SNU/HH DC ---
DISCHARGE ORDERS DISCHARGE INFORMATION: CONDITION ON DISCHARGE: Stable CODE STATUS: Code Status: Full JAIL: SNF STAY <30 DAYS: No HOSPICE: HOSPICE: No HOSPICE EVAL & TREAT: No LTAC: ADMIT TO LTAC: Yes POST DISCHARGE ORDERS: ACTIVITY ORDERS: Other, see below WEIGHT BEARING STATUS: No restrictions BATHING ORDERS: Shower-keep dressing dry DIET AFTER DISCHARGE: Cardiac TREATMENT/EQUIPMENT ORDERS: Physical Therapy For: Evalulation/Treatment Occupational Therapy For: Evaluation/Treatment Speech Language Pathology For: Evaluation/Treatment DISCHARGE MEDICATIONS: Home Meds Reported Medications Insulin Degludec (Tresiba Flextouch U-100) 100 Unit/1 Ml Insuln.pen, 100 UNIT SQ 08/12/16 Dulaglutide (Trulicity) 1.5 Mg/0.5 Ml Pen.injctr, 1.5 MG SQ 08/12/16 Sumatriptan Succinate (IMITREX) 100 Mg Tablet, 1 TAB PO PRN Q12HRS PRN for MIGRAINE HEADACHE, #9 TAB 1 Refill 11/05/15 Pantoprazole Sodium (PANTOPRAZOLE SODIUM ) 40 Mg Tablet.dr, 1 TAB PO DAILY, #30 TAB 3 Refills 11/05/15 Metformin Hcl (METFORMIN HCL) 1,000 Mg Tablet, 1 TAB PO BID, #60 TAB 5 Refills Hold for 48 hours post procedure. Restart Metformin 11/07/15 evening dose and continue as prescribed after that. 11/05/15 Fluticasone Propionate (Flonase Allergy Relief) 9.9 Ml [place].susp, 2 SPRAYS NS BID, BOTTLE 11/05/15 Fluticasone Propionate (FLOVENT 50MCG DISKUS) 50 Mcg Disk.w.dev, 50 MCG IH BID, INHALER 11/05/15 Atorvastatin Calcium (ATORVASTATIN CALCIUM) 20 Mg Tablet, 20 MG PO HS for FOR CHOLESTEROL, #30 TAB 0 Refills 11/05/15 Acetaminophen (TYLENOL) 325 Mg Tablet, 650 MG PO PRN Q6HRS PRN for PAIN 11/05/15 KARLI PITTMAN III DO Nov 02, 2019 11:08
--- NOTE | 2019-11-02 11:14 | SNU/HH DC ---
DISCHARGE WITH HOME HEALTH DISCHARGE INFORMATION: Condition on Discharge: Stable CODE STATUS: Code Status: Full HOME HEALTH: Face to Face: I certify this patient is under my care and that I, or a nurse practitioner or physician's paraprofessional education assistant working with me, had a face to face encounter that meets the physician face to face encounter requirements with this patient on []. Medical Complications: Pneumonia Detention For: Assess/Skilled Observatio RN For Eval/Treatment: Yes Physical Therapy For: Evalulation/Treatment Occupational Therapy For: Evaluation/Treatment Speech Language Pathology For: Evaluation/Treatment Home Health Aide For: Self-care [employer]OSCIENC[employer] ASSOCIATE PROFESSOR For: Community Resources Pt Meets Homebound Status: Poor coordination w/ amb. POST DISCHARGE ORDERS: Activity Instructions for Disc: Other, see below Weight Bearing Status after Di: No restrictions Bathing Instructions: Shower-keep dressing dry DIET AFTER DISCHARGE: Cardiac CERTIFICATION STATEMENT: Certification Statement: Certification Statement: Based on the above finding, I certify that this patient is confined to the home and needs intermittent residential care, physical therapy and/or speech therapy, or continues to need occupational therapy.~ This patient is under my care, and I have initiated the establishment of the plan of care.~ This patient will be followed by myself or a community physician who will periodically review the plan of care. Home Meds Active Scripts Montelukast Sodium (MONTELUKAST SODIUM TABLET ) 10 Mg Tablet, 10 MG PO QHS for asthma for 30 Days, #30 TAB Prov:CASTLE,NIAL K III DO 11/02/19 Rivaroxaban (XARELTO) 10 Mg Tablet, 20 MG PO DAILYWBKFT for anticoag for 30 Days, #60 TAB Prov:ZAIN,NIAL K III DO 11/02/19 Reported Medications Insulin Degludec (Tresiba Flextouch U-100) 100 Unit/1 Ml Insuln.pen, 100 UNIT SQ 08/12/16 Dulaglutide (Trulicity) 1.5 Mg/0.5 Ml Pen.injctr, 1.5 MG SQ 08/12/16 Sumatriptan Succinate (IMITREX) 100 Mg Tablet, 1 TAB PO PRN Q12HRS PRN for MIGRAINE HEADACHE, #9 TAB 1 Refill 11/05/15 Pantoprazole Sodium (PANTOPRAZOLE SODIUM ) 40 Mg Tablet.dr, 1 TAB PO DAILY, #30 TAB 3 Refills 11/05/15 Metformin Hcl (METFORMIN HCL) 1,000 Mg Tablet, 1 TAB PO BID, #60 TAB 5 Refills Hold for 48 hours post procedure. Restart Metformin 11/07/15 evening dose and continue as prescribed after that. 11/05/15 Fluticasone Propionate (Flonase Allergy Relief) 9.9 Ml [place].susp, 2 SPRAYS NS BID, BOTTLE 11/05/15 Fluticasone Propionate (FLOVENT 50MCG DISKUS) 50 Mcg Disk.w.dev, 50 MCG IH BID, INHALER 11/05/15 Atorvastatin Calcium (ATORVASTATIN CALCIUM) 20 Mg Tablet, 20 MG PO HS for FOR CHOLESTEROL, #30 TAB 0 Refills 11/05/15 Acetaminophen (TYLENOL) 325 Mg Tablet, 650 MG PO PRN Q6HRS PRN for PAIN 11/05/15 KARLI PITTMAN III DO Nov 02, 2019 11:14
[2019-11-02] MEDS ORDERED: ANTI-COAG MONITOR BY PHARMACY. MC PRN (11:45)
--- NOTE | 2019-11-02 11:57 | PDOC ---
[employer] PROGRESS NOTE Chief Complaint Chief Complaint COVID-19 CRITERIA: The patient was evaluated during the global COVID-19 pandemic, and that diagnosis was suspected/considered upon their initial presen tation. Their evaluation, treatment and testing was consistent with current guidelines for patients who present with complaints or symptoms that may be related to COVID-19. Acute hypoxic respiratory failure secondary to COVID-[address] chest with ground-glass opacities favoring a viral pneumonitis/COVID-19 pneumonia. Recent history of pulmonary embolism in 08/2019 along with DVT after a road trip to [place]. The patient has been on anticoagulation with Xarelto. Initially, she was on Eliquis. She would need at least 3 months of anticoagulation and a followup imaging study. Underlying obesity. Underlying asthma, clinically stable. History of Present Illness History of Present Illness 11-02-2019 Patient seen and examined She seems to be at baseline We will discharge home with home O2 11-01-2019 Patient seen and examined on the Covil-19 unit She remains in respiratory isolation Discussed with RN Chart reviewed Patient is somnolent 10-31-2019 Patient seen and examined on the Covid-19 unit She remains in respiratory isolation Very ill Chart reviewed Discussed with RN [id number] Patient seen and examined Discussed with RN Chart reviewed She is very ill Vitals/I&O Vitals/I&O: Vital Signs Date Time Temp Pulse Resp B/P (MAP) Pulse Ox O2 Delivery O2 Flow Rate FiO2 11/02/19 07:00 98.1 66 16 90/58 (69) 92 Room Air 98.1 11/02/19 03:00 93.0 I & O 11/01/19 11/01/19 11/02/19 15:00 23:00 07:00 Intake Total 250 ml Balance 250 ml Physical Exam General: moderate distress Heart: Regular rate, Normal S1 Lungs: Crackles, Other (wheezing) Abdomen: Normal bowel sounds, Soft, No tenderness, No hepatosplenomegaly, No masses Extremities: No clubbing, No cyanosis, No edema, Normal pulses, No tenderness/swelling Skin: No rashes, No breakdown, No significant lesion Labs Labs: Laboratory Tests Test 11/01/19 16:13 11/01/19 21:15 11/02/19 08:03 11/02/19 10:24 Glucose (Fingerstick) 213 mg/dL (70-99) 259 mg/dL (70-99) 140 mg/dL (70-99) 136 mg/dL (70-99) Assessment and Plan Assessmemt and Plan Resolving Covid-19 syndrome Plan Discharge home Comment Review of Relevant I have reviewed the following items [place] (where applicable) has been applied. Medications: Current Medications Medications (Trade) Dose Ordered Sig/Joe Route PRN Reason Start Time Stop Time Status Last Admin Dose Admin Al Hydroxide/Mg Hydroxide (Mylanta Plus Xs) 30 ml PRN Q6HRS PRN PO DYSPEPSIA 11/01/19 13:00 11/01/19 13:45 Ondansetron HCl (Zofran) 4 mg PRN Q6HRS PRN IVP NAUSEA/VOMITING 1ST CHOICE 11/01/19 21:30 11/02/19 08:46 KARLI PITTMAN III DO Nov 02, 2019 11:57
[2019-11-02 15:00] VITALS: BP 109/63
--- NOTE | 2019-11-02 16:59 | NUR ---
Pt was escorted out with all belongings to main entrance with mask, and oxygen and education on her oxygen. In wheelchair and this RN and Yane VIVAS
== END 2019-11-02 16:50 | disposition home or self-care (01) | DRG 177 ==
LOC: 1 WEST ICU 14:07 → 6 SOUTH 16:13
PROVIDERS: ADMIT Internal Medicine; ATTEND Internal Medicine
DX: U07.1 COVID-19 (principal); J12.89 Other viral pneumonia; J96.01 Acute respiratory failure with hypoxia; J44.0 Chronic obstructive pulmonary disease with (acute) lower respiratory infection; E11.9 Type 2 diabetes mellitus without complications; E66.9 Obesity, unspecified; Z68.27 Body mass index [BMI] 27.0-27.9, adult; Z78.9 Other specified health status; Z79.01 Long term (current) use of anticoagulants; Z82.49 Family history of ischemic heart disease and other diseases of the circulatory system; Z86.711 Personal history of pulmonary embolism; Z86.718 Personal history of other venous thrombosis and embolism; Z98.51 Tubal ligation status; Z88.0 Allergy status to penicillin
CPT/HCPCS: 36415; 71045; 80048; 82962; 85025; J1815; J2405; J3010; G0378